=== PATIENT | female | born 1955 | race Caucasian/White ===

== ENCOUNTER 2017-04-03 17:34 | Observation (INO) | payer MEDICAID ==
[2017-04-03] MEDS ORDERED: Sodium Chloride 0.9% 1,000 ML IV ONE (17:57)
[2017-04-03 18:19] LABS: BASO # 0.1 K/uL (0.0-0.2); BASO % 0.5 % (0.0-2.0); EOS # 0.5 K/uL (0.0-0.7); EOS % 4.5 % (0.0-4.0); HEMATOCRIT 35.6 % (34.0-47.0); LYMPH # 3.6 K/uL (1.0-4.3); LYMPH % 30.6 % (20.0-40.0); MEAN CELL VOLUME 96.7 fL (81.0-99.0); MEAN CORPUSCULAR HEMOGLOBIN 30.6 pg (27.0-31.0); MEAN CORPUSCULAR HGB CONC 31.6 g/dL (33.0-37.0); MEAN PLATELET VOLUME 9.9 fL (7.2-11.7); MONO # 0.5 K/uL (0.0-0.8); MONO % 4.5 % (0.0-10.0); RED CELL DISTRIBUTION WIDTH 13.9 % (11.5-14.5); WHITE BLOOD COUNT 11.8 K/uL (4.8-10.8)
--- NOTE | 2017-04-03 18:27 | C.PDOC ---
History Of Present Illness 62 y/o female, with PMHx of HTN, diabetes, presents to ED c/o dizziness and lightheadedness that started earlier today. As per EMS, pt was at daycare center when she began to feel dizzy. Denies fever, pain, change in vision, nausea, vomiting, or any other complaints. Time Seen by Provider: 04/03/17 17:43 Chief Complaint (Nursing): Dizziness/Lightheaded History Per: Patient History/Exam Limitations: no limitations Onset/Duration Of Symptoms: Hrs Current Symptoms Are (Timing): Still Present Past Medical History Reviewed: Historical Data, Nursing Documentation, Vital Signs Vital Signs: Last Vital Signs Temp 98.9 F 04/05/17 14:00 Pulse 75 04/05/17 10:00 Resp 18 04/05/17 06:00 BP 136/76 04/05/17 06:00 Pulse Ox 95 04/05/17 06:00 - Medical History PMH: Anxiety, Asthma, Depression, Fractures (# left ankle), HTN, Hypercholesterolemia, Rheumatoid Arthritis Family History: States: Unknown Family Hx - Social History Hx Alcohol Use: No Hx Substance Use: No - Immunization History Hx Tetanus Toxoid Vaccination: No Hx Influenza Vaccination: No Review Of Systems Except As Marked, All Systems Reviewed And Found Negative. Constitutional: Negative for: Fever, Chills Eyes: Negative for: Vision Change Cardiovascular: Positive for: Light Headedness. Negative for: Chest Pain, Palpitations Respiratory: Negative for: Shortness of Breath Gastrointestinal: Negative for: Nausea, Vomiting Neurological: Positive for: Dizziness. Negative for: Weakness, Numbness, Headache Physical Exam - Physical Exam Appears: Non-toxic, No Acute Distress, Other (comfortable, on her phone) Skin: Normal Color, Warm, Dry Head: Atraumatic, Normacephalic Eye(s): bilateral: Normal Inspection Nose: Normal Oral Mucosa: Moist Neck: Normal ROM, Supple Chest: Symmetrical Cardiovascular: Rhythm Regular, No Murmur Respiratory: Normal Breath Sounds, No Rales, No Rhonchi, No Wheezing Gastrointestinal/Abdominal: Soft, No Tenderness Extremity: Normal ROM Neurological/Psych: Oriented x3, Normal Speech, Normal Cognition ED Course And Treatment - Laboratory Results Result Diagrams: 04/03/17 18:10 04/03/17 18:10 ECG: Interpreted By Me, Viewed By Me ECG Rhythm: Sinus Rhythm ECG Interpretation: No Acute Changes Interpretation Of ECG: No acute ST wave changes. Rate From EC O2 Sat by Pulse Oximetry: 97 Pulse Ox Interpretation: Normal Medical Decision Making Medical Decision Making: Blood work, UA, CXR, EKG ordered and reviewed. Patient was given IV fluids. unable to reach pmd to discuss cr. discussed with dr trent, accpetd for obs for renal insufficency, near syncope Disposition - Disposition Disposition: HOSPITALIZED Disposition Time: 08:33 Condition: STABLE - Clinical Impression Clinical Impression: Dizziness, Near syncope, Renal insufficiency - Scribe Statement The provider has reviewed the documentation as recorded by the Scribe Isidra Trent All medical record entries made by the Scribe were at my direction and personally dictated by me. I have reviewed the chart and agree that the record accurately reflects my personal performance of the history, physical exam, medical decision making, and the department course for this patient. I have also personally directed, reviewed, and agree with the discharge instructions and disposition. Decision To Admit - Pt Status Changed To: Hospital Disposition Of: Observation - . Bed Request Type: Telemetry Admitting Physician: Slim Trent Patient Diagnosis: Dizziness, Near syncope, Renal insufficiency
[2017-04-03 18:32] LABS: ALKALINE PHOSPHATASE 67 U/L (38-126); ALT/SGPT 77 U/L (9-52); AST/SGOT 63 U/L (14-36); BILIRUBIN,TOTAL 0.4 mg/dL (0.2-1.3); BLOOD UREA NITROGEN 35 mg/dL (7-17); CALCIUM 8.7 mg/dl (8.6-10.4); CARBON DIOXIDE 27 mmol/L (22-30); CHLORIDE 99 mmol/L (98-107); GFR AFRICAN-AMERICAN 26; GLUCOSE,RANDOM 89 mg/dL (65-105); POTASSIUM 3.5 mmol/L (3.6-5.2); SODIUM 140 mmol/L (132-148); TOTAL PROTEIN 8.9 g/dL (6.3-8.3)
[2017-04-03 18:34] LABS: ALB/GLOB RATIO 0.9 (1.0-2.1)
[2017-04-03] MEDS ORDERED: Sodium Chloride 0.9% 1,000 ML ONE (19:34)
--- NOTE | 2017-04-03 20:33 | CT ---
EXAM: CT Abdomen and Pelvis Without Intravenous Contrast EXAM DATE/TIME: 04/03/2017 7:06 PM CLINICAL HISTORY: 62 years old, female; Pain; Abdominal pain; Flank; Left lower quadrant (llq); Additional info: Left flank pain TECHNIQUE: Axial computed tomography images of the abdomen and pelvis without intravenous contrast. All CT scans at this facility use one or more dose reduction techniques, viz.: automated exposure control; ma/kV adjustment per patient size (including targeted exams where dose is matched to indication; i.e. head); or iterative reconstruction technique. Coronal and sagittal reformatted images were created and reviewed. COMPARISON: There are no prior studies for comparison. FINDINGS: Lower thorax: The heart is mildly enlarged. There are coronary artery calcifications. There is minimal atelectasis and scarring at the lung bases. ABDOMEN: Liver: unremarkable Gallbladder and bile ducts: Gallbladder is distended with multiple stones.There is prominence of the common duct. Pancreas: Pancreas is atrophic. Spleen: unremarkable Adrenals: Right adrenal is unremarkable. There are left adrenal nodules. Kidneys and ureters: There are bilateral nonobstructing renal stones. There is a left renal cyst. There are no ureteral stones. There is no pelvocaliectasis or ureterectasis. Stomach and bowel: Stomach is distended with ingested material. There is an air-fluid level. Rotation is normal. Proximal small bowel is mildly distended with fluid and air. There is fluid and air throughout the small bowel. Ileocecal region is unremarkable. Appendix and terminal ileum are unremarkable.There is moderate stool in the right colon. There is scattered diverticulosis. Appendix: See stomach and bowel PELVIS: Bladder: unremarkable Reproductive: Uterus and adnexal structures are unremarkable. ABDOMEN and PELVIS: Intraperitoneal space: There is no free air or free fluid. Bones/joints: Bony structures are osteopenic with degenerative change. There is a mild convex left thoracolumbar curve. There is mild compression deformity of L1. There is a bone island in the left femoral head. There is multilevel disc space narrowing. Soft tissues: There is a small fat containing umbilical hernia. Vasculature: There are calcified phleboliths. There are vascular calcifications. Lymph nodes: There is no pathologic adenopathy. IMPRESSION: Bilateral nonobstructing renal stones, no ureteral stones or hydronephrosis; no CT findings of appendicitis or diverticulitis; gallstones Additional findings as described above.
--- NOTE | 2017-04-04 07:35 | CP.PCM.CON ---
History of Present Illness - History of Present Illness History of Present Illness: CONSULT DICTATED DIABETIC DYSAUTONOMIA VS IATROGENIC FROM ANTI HTN MED DIABETIC AND COLLAGEN VASC DISEASE NEUROPATHY FACIAL ASYMMETRY AND BILAT BABINSKI CHECK BRAIN REST PER ORDER Past Patient History - Past Social History Smoking Status: Heavy Smoker > 10 Cigarettes Daily - CARDIAC Hx Hypercholesterolemia: Yes Hx Hypertension: Yes - PULMONARY Hx Asthma: Yes - NEUROLOGICAL Hx Vertigo: Yes - ENDOCRINE/METABOLIC Hx Diabetes Mellitus Type 2: Yes - MUSCULOSKELETAL/RHEUMATOLOGICAL Hx Fractures: Yes (# left ankle) Hx Rheumatoid Arthritis: Yes - PSYCHIATRIC Hx Anxiety: Yes Hx Depression: Yes Hx Substance Use: No - SURGICAL HISTORY Hx Surgeries: No - ANESTHESIA Hx Anesthesia: No Meds Allergies/Adverse Reactions: Allergies Allergy/AdvReac Type Severity Reaction Status Date / Time No Known Allergies Allergy Verified 02/02/15 14:11 - Medications Medications: Current Medications Aspirin (Aspirin) 325 mg PO DAILY [facility] Clopidogrel Bisulfate (Plavix) 75 mg PO DAILY [facility] Enoxaparin Sodium (Lovenox) 40 mg SC DAILY [facility] Meclizine HCl (Antivert) 25 mg PO TID [facility] Pantoprazole Sodium (Protonix Ec Tab) 40 mg PO DAILY [facility] Results - Vital Signs Recent Vital Signs: Last Vital Signs Temp 97.7 F 04/04/17 02:00 Pulse 52 L 04/04/17 02:00 Resp 19 04/04/17 02:00 BP 93/57 L 04/04/17 02:00 Pulse Ox 96 04/04/17 02:00 - Labs Result Diagrams: 04/03/17 18:10 04/03/17 18:10 Labs: Laboratory Results - last 24 hr 04/03/17 04/03/17 04/03/17 17:40 18:10 18:10 WBC 11.8 H RBC 3.68 L Hgb 11.3 Hct 35.6 MCV 96.7 MCH 30.6 MCHC 31.6 L RDW 13.9 Plt Count 212 MPV 9.9 Neut % (Auto) 59.9 Lymph % (Auto) 30.6 [place] % (Auto) 4.5 Eos % (Auto) 4.5 H Baso % (Auto) 0.5 Neut # 7.1 H Lymph # 3.6 [place] # 0.5 Eos # 0.5 Baso # 0.1 PT 11.7 INR 1.0 APTT 28 Sodium Potassium Chloride Carbon Dioxide Anion Gap BUN Creatinine Est GFR ( Amer) Est GFR (Non-Af Amer) POC Glucose (mg/dL) 99 Random Glucose Calcium Total Bilirubin AST ALT Alkaline Phosphatase Total Creatine Kinase CK-MB (Mass) Troponin I Total Protein Albumin Globulin Albumin/Globulin Ratio 04/03/17 04/04/17 18:10 04:16 WBC RBC Hgb Hct MCV MCH MCHC RDW Plt Count MPV Neut % (Auto) Lymph % (Auto) [place] % (Auto) Eos % (Auto) Baso % (Auto) Neut # Lymph # [place] # Eos # Baso # PT INR APTT Sodium 140 Potassium 3.5 L Chloride 99 Carbon Dioxide 27 Anion Gap 19 BUN 35 H Creatinine 2.3 H Est GFR ( Amer) 26 Est GFR (Non-Af Amer) 21 POC Glucose (mg/dL) Random Glucose 89 Calcium 8.7 Total Bilirubin 0.4 AST 63 H ALT 77 H Alkaline Phosphatase 67 Total Creatine Kinase 59 CK-MB (Mass) 1.12 Troponin I < 0.0120 < 0.0120 Total Protein 8.9 H Albumin 4.3 Globulin 4.6 H Albumin/Globulin Ratio 0.9 L
--- NOTE | 2017-04-04 07:47 | RAD ---
HISTORY: dizziness/weakness COMPARISON: No prior. FINDINGS: LUNGS: No active pulmonary disease. PLEURA: No significant pleural effusion identified, no pneumothorax apparent. CARDIOVASCULAR: Prominent cardiac silhouette. Normal pulmonary vascular pattern. OSSEOUS STRUCTURES: No significant abnormalities. VISUALIZED UPPER ABDOMEN: Normal. OTHER FINDINGS: None. IMPRESSION: Cardiomegaly. No pulmonary vascular derangement identified. No acute infiltrate bilaterally.
[2017-04-04 08:48] LABS: FREE T4 1.24 ng/dL (0.78-2.19)
[2017-04-04 09:02] LABS: THYROID STIMULATING HORMONE 0.82 mIU/L (0.46-4.68)
--- NOTE | 2017-04-04 09:51 | CON ---
ATTENDING PHYSICIAN: Clau Eli MD. LOCATION: The patient's room number, ER bed 1. REASON FOR THE CONSULTATION: Dizziness. CHIEF COMPLAINT: The patient was brought in to [facility] with a history of recurrent dizziness. From neurological point of view, I was called in to evaluate her for further management. HISTORY OF PRESENT ILLNESS: Ms. Keila Gracia is a 62-year-old right-handed depressed female, presenting with episodic dizziness for more than 6 months. She feels whenever she sits, she feels lightheadedness. When she forces to get up, she tend to fall. She has a recurrent fall on the left side only. Sometimes, the dizziness is associating with vertical double vision. No shortness of breath. Painful walking due to the arthritis. No bowel or bladder incontinence. No history of involuntary movements. No history of speech impairment. No headache at present. PAST MEDICAL HISTORY: Diabetes mellitus, hypertension, dyslipidemia, rheumatoid arthritis. PERSONAL HISTORY: Denies alcohol use; however, she smokes. MEDICATIONS AT HOME: Oxycodone, Norvasc, Ventolin, Strovite, Januvia, Simvastatin, paroxetine, oxybutynin, Starlix, Antivert, Lantus insulin and iron supplements. REVIEW OF SYSTEMS: Twelve-point systems had been reviewed. From neuro, recurrent dizziness. PHYSICAL EXAMINATION: VITAL SIGNS: Blood pressure 93/57, mean arterial pressure of 69, respiratory rate 16, temperature 97.7, pulse rate 52, regular. NECK: Supple. No carotid bruit. HEART: Sounds systolic murmur. EXTREMITIES: No edema in legs. NEUROLOGICAL: Mental status examination: She is awake, alert, oriented to person, place and time. Speech is clear. Naming, repetition, fluency, comprehension all within normal. Cranial nerve examination: Visual field intact. Pupils reactive to light. Extraocular movement seems to be intact. No focal weakness of the extraocular muscles noted. No primary gaze nystagmus. No facial sensory deficit. Significant facial asymmetry manifesting with flattening of the right nasolabial fold. Hearing seems to be intact. Mouth moist. Tongue is midline. Motor examination: Pain limited exam in the shoulder as well as elbows. No significant drift noted. Symmetric muscle strength on both upper extremities. Lower extremities, pain limited exam. Deep tendon reflexes, biceps, brachialis, triceps 3+ on either side. Both knees are absent. Both ankles are absent. Plantars are upgoing on both sides. Sensory examination: Significantly decreased bilateral distal symmetric sensory motor dysfunction. Gait is antalgic gait. WORKUP: Chest x-ray, no acute pathology is noted. Blood workup: WBC 11.8, hemoglobin 11.3, hematocrit 35.6, platelet 212. PT 11.7, INR 1.0, PTT 28. Sodium 140, potassium 3.5, chloride 99, bicarbonate 27, BUN 35, creatinine 2.3, AST 63, ALT 77, protein 8.9. CONCLUSION: Ms. Keila Gracia has been presenting with the following. 1. 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 However, this is probably secondary to her iatrogenic too much medication for her blood pressure control. 2. Facial asymmetry associating with hyperreflexia in the upper extremities and Babinski sign raised the possibility of posterior fossa dysfunction. This is probably secondary to ischemic process versus space-occupying lesion. 3. 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 Her diabetes, hypertension, cholesterol has to be controlled. 4. The patient definitely needs MRI of the brain, carotid Doppler, echocardiogram, EEG to rule out any focal pathology that could explain her problem. 5. The patient should have nerve conduction study and electromyography that can be done as outpatient to study the extend of her neuropathy. 6. The patient should be kept fall precaution. Continue antiplatelets for now with statins. 7. Abstinence from smoking had been discussed with her. Gregory Acosta MD
[2017-04-04] MEDS ORDERED: GLUCOVANCE PO SCH (10:00)
[2017-04-04] MEDS ORDERED: Enoxaparin 40 mg Syringe SC SCH ×2 (10:00)
[2017-04-04] MEDS: Enoxaparin 30 mg Syringe SC SCH (12:02)
[2017-04-04] MEDS: Pantoprazole 40 mg EC Tab PO SCH (12:03)
--- NOTE | 2017-04-04 12:05 | VASCLAB ---
PROCEDURE: HISTORY: Syncope, R55 COMPARISON: None available. TECHNIQUE: Grayscale and duplex Doppler evaluation of the cervical carotid and vertebral arteries were performed. The common carotid, carotid bifurcations and cervical Internal Carotid Artery (ICA) and proximal External Carotid Artery (ECA) were evaluated. The vertebral arteries were evaluated for gross patency and flow direction. Report prepared by ROMERO Mcknight FINDINGS: RIGHT CAROTID ARTERIES: 1. Common Carotid Artery: No significant focal plaque formation of the right common carotid artery. Maximum Peak Systolic velocity: 94 cm/sec: End-diastolic velocity 16 cm/sec. 2. Carotid Bifurcation: plaque formation. Maximum Peak Systolic velocity: 46 cm/sec: End-diastolic velocity 13 cm/sec. 3. Internal Carotid Artery: Plaque description: 3.1. Proximal Segment: Peak systolic velocity 57 cm/sec: End-diastolic velocity 22 cm/sec - % stenosis 0-15% 3.2. Middle Segment: Peak systolic velocity 83 cm/sec: End-diastolic velocity 29 cm/sec - % stenosis 0-15% 3.3. Distal Segment: Peak systolic velocity 85 cm/sec: End-diastolic velocity 25 cm/sec - % stenosis 0-15% 4. External Carotid Artery: No significant focal plaque formation. Peak systolic velocity 72 cm/sec 5. ICA/CCA Ratio: 1.4 LEFT CAROTID ARTERIES: 1. Common Carotid Artery: No significant focal plaque formation of the left common carotid artery. Maximum Peak Systolic velocity: 87 cm/sec: End-diastolic velocity 17 cm/sec. 2. Carotid Bifurcation: plaque formation. Maximum Peak Systolic velocity: 57 cm/sec: End-diastolic velocity 16 cm/sec. 3. Internal Carotid Artery: Plaque description: 3.1. Proximal Segment: Peak systolic velocity 65 cm/sec: End-diastolic velocity 25 cm/sec - % stenosis 0-15% 3.2. Middle Segment: Peak systolic velocity 69 cm/sec: End-diastolic velocity 26 cm/sec - % stenosis 0-15% 3.3. Distal Segment: Peak systolic velocity 91 cm/sec: End-diastolic velocity 28 cm/sec - % stenosis 0-15% 4. External Carotid Artery: No significant focal plaque formation. Peak systolic velocity 94 cm/sec 5. ICA/CCA Ratio: 1.4 VERTEBRAL ARTERIES: 1. Right Vertebral Artery: The right vertebral artery flow direction is antegrade. 2. Left Vertebral Artery: The left vertebral artery flow direction is antegrade. OTHER FINDINGS: 1. Right Brachial Blood pressure: 100 mmHg. 2. Left Brachial Blood pressure: 100 mmHg. IMPRESSION: RIGHT: Duplex scan does not suggest hemodynamically significant stenosis of the right extracranial carotid arteries. LEFT: Duplex scan does not suggest hemodynamically significant stenosis of the left extracranial carotid arteries.
--- NOTE | 2017-04-04 13:23 | MRI ---
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 TECHNIQUE: Multiplanar, multisequence MR images of the brain were obtained without intravenous contrast enhancement. FINDINGS: HEMORRHAGE: None DWI: No evidence of an acute or early subacute infarction. BRAIN PARENCHYMA: There are moderate chronic microangiopathic changes. There is no mass, mass effect or abnormal extra-axial fluid collection. The midline sagittal structures are normal. VENTRICLES: There is mild age-related global parenchymal volume loss and proportionate enlargement of the ventricles and cortical sulci. There is a cavum vergae. CRANIUM: There is normal bone marrow signal pattern. ORBITS: Grossly unremarkable. PARANASAL SINUSES/MASTOIDS: Predominantly clear. VASCULAR SYSTEM: There are normal signal voids in the larger intracranial arteries. OTHER FINDINGS: None. IMPRESSION: No acute intracranial abnormality. Specifically, no evidence of acute infarction. Moderate chronic microangiopathic changes and mild age-related global parenchymal volume loss.
--- NOTE | 2017-04-04 19:07 | CP.PCM.HP ---
History of Present Illness - History of Present Illness History of Present Illness: 62-year-old female with PMHanxiety, asthma DM,, depression, HTN, hypercholesterolemia and rheumatoid arthritis presents to the ER for evaluation of lightheadedness. C/ dizziness for the last few hours. Patient was at her daycare when she felt dizzy. No C/Oloss of consciousness, fever, chills, pain, blurring of vision, tinnitus, ringing in the years, vomiting. Present on Admission - Present on Admission Any Indicators Present on Admission: No Past Patient History - Past Medical History & Family History Past Medical History?: Yes - Past Social History Smoking Status: Heavy Smoker > 10 Cigarettes Daily - CARDIAC Hx Hypercholesterolemia: Yes Hx Hypertension: Yes - PULMONARY Hx Asthma: Yes - NEUROLOGICAL Hx Dizziness: Yes Hx Vertigo: Yes - ENDOCRINE/METABOLIC Hx Diabetes Mellitus Type 2: Yes - MUSCULOSKELETAL/RHEUMATOLOGICAL Hx Falls: Yes ("Frequent vertigo" per patient last fall 07/2016) Hx Fractures: Yes (# left ankle) Hx Rheumatoid Arthritis: Yes - PSYCHIATRIC Hx Anxiety: Yes Hx Depression: Yes Hx Substance Use: No - SURGICAL HISTORY Hx Surgeries: No - ANESTHESIA Hx Anesthesia: No Meds Home Medications: Home Medication List Medication Instructions Recorded Confirmed Type Diclofenac Sodium [Voltaren] 75 mg PO BID #28 ect 04/05/17 Rx Escitalopram [Lexapro] 5 mg PO DAILY #30 tab 04/05/17 Rx Meclizine [Meclizine*] 25 mg PO TID #90 tab 04/05/17 Rx clonazePAM [Klonopin] 0.5 mg PO BID #30 tab 04/05/17 Rx Allergies/Adverse Reactions: Allergies Allergy/AdvReac Type Severity Reaction Status Date / Time No Known Allergies Allergy Verified 02/02/15 14:11 Physical Exam - Constitutional Appears: Well - Head Exam Head Exam: ATRAUMATIC, NORMAL INSPECTION, NORMOCEPHALIC - Eye Exam Eye Exam: EOMI, Normal appearance, PERRL Pupil Exam: NORMAL ACCOMODATION, PERRL - ENT Exam ENT Exam: Mucous Membranes Moist, Normal Exam - Neck Exam Neck exam: Positive for: Normal Inspection - Respiratory Exam Respiratory Exam: Decreased Breath Sounds - Cardiovascular Exam Cardiovascular Exam: REGULAR RHYTHM, +S1, +S2 - GI/Abdominal Exam GI & Abdominal Exam: Diminished Bowel Sounds, Soft - Rectal Exam Rectal Exam: Deferred Results - Vital Signs Recent Vital Signs: Last Vital Signs Temp 98.4 F 04/04/17 14:00 Pulse 61 04/04/17 09:35 Resp 17 04/04/17 09:35 BP 127/74 04/04/17 07:57 Pulse Ox 96 04/04/17 09:35 - Labs Result Diagrams: 04/03/17 18:10 04/03/17 18:10 Labs: Laboratory Results - last 24 hr 04/04/17 04/04/17 04/04/17 04:16 07:46 07:46 POC Glucose (mg/dL) Hemoglobin A1c 6.7 H Total Creatine Kinase 59 CK-MB (Mass) 1.12 Troponin I < 0.0120 Vitamin B12 617 Free T4 TSH 3rd Generation 04/04/17 04/04/17 04/04/17 07:58 12:25 17:28 POC Glucose (mg/dL) 205 H Hemoglobin A1c Total Creatine Kinase 64 CK-MB (Mass) 0.79 Troponin I < 0.0120 Vitamin B12 Free T4 1.24 TSH 3rd Generation 0.82
[2017-04-04] MEDS ORDERED: Potassium Chloride 20 mEq ER Tab PO STA (19:26)
[2017-04-04] MEDS: (Novolin R) Insulin Human Regular 100 units/ml vial SC SCH (21:54)
--- NOTE | 2017-04-04 23:02 | CP.PCM.CON ---
History of Present Illness - History of Present Illness History of Present Illness: Patient seen and evaluated Full consult to follow Past Patient History - Past Medical History & Family History Past Medical History?: Yes - Past Social History Smoking Status: Heavy Smoker > 10 Cigarettes Daily - CARDIAC Hx Hypercholesterolemia: Yes Hx Hypertension: Yes - PULMONARY Hx Asthma: Yes - NEUROLOGICAL Hx Dizziness: Yes Hx Vertigo: Yes - ENDOCRINE/METABOLIC Hx Diabetes Mellitus Type 2: Yes - MUSCULOSKELETAL/RHEUMATOLOGICAL Hx Falls: Yes ("Frequent vertigo" per patient last fall 07/2016) Hx Fractures: Yes (# left ankle) Hx Rheumatoid Arthritis: Yes - PSYCHIATRIC Hx Anxiety: Yes Hx Depression: Yes Hx Substance Use: No - SURGICAL HISTORY Hx Surgeries: No - ANESTHESIA Hx Anesthesia: No Meds Allergies/Adverse Reactions: Allergies Allergy/AdvReac Type Severity Reaction Status Date / Time No Known Allergies Allergy Verified 02/02/15 14:11 - Medications Medications: Current Medications Amlodipine Besylate (Norvasc) 5 mg PO DAILY [facility] Last Admin: 04/04/17 12:03 Dose: Not Given Aspirin (Aspirin) 325 mg PO DAILY [facility] Last Admin: 04/04/17 12:02 Dose: Not Given Clopidogrel Bisulfate (Plavix) 75 mg PO DAILY [facility] Last Admin: 04/04/17 12:03 Dose: Not Given Enoxaparin Sodium (Lovenox) 30 mg SC DAILY [facility] Last Admin: 04/04/17 12:02 Dose: Not Given Ferrous Sulfate (Feosol) 325 mg PO BID [facility] Last Admin: 04/04/17 17:22 Dose: 325 mg Glyburide (Micronase) 5 mg PO BID [facility] Last Admin: 04/04/17 17:23 Dose: 5 mg Insulin Human Regular (Novolin R) 0 unit SC [facility] PRN Reason: Protocol Last Admin: 04/04/17 21:54 Dose: Not Given Meclizine HCl (Antivert) 25 mg PO TID [facility] Last Admin: 04/04/17 17:23 Dose: 25 mg [facility] Last Admin: 04/04/17 16:48 Dose: 500 mg Oxybutynin Chloride (Ditropan Xl) 5 mg PO DAILY [facility] Pantoprazole Sodium (Protonix Ec Tab) 40 mg PO DAILY [facility] Last Admin: 04/04/17 12:03 Dose: Not Given Sitagliptin Phosphate (Januvia) 100 mg PO DAILY [facility] Results - Vital Signs Recent Vital Signs: Last Vital Signs Temp 98.8 F 04/04/17 21:56 Pulse 63 04/04/17 18:00 Resp 19 04/04/17 18:00 BP 112/43 L 04/04/17 18:00 Pulse Ox 99 04/04/17 18:00 - Labs Result Diagrams: 04/03/17 18:10 04/03/17 18:10 Labs: Laboratory Results - last 24 hr 04/04/17 04/04/17 04/04/17 04:16 07:46 07:46 POC Glucose (mg/dL) Hemoglobin A1c 6.7 H Total Creatine Kinase 59 CK-MB (Mass) 1.12 Troponin I < 0.0120 Vitamin B12 617 Free T4 TSH 3rd Generation 04/04/17 04/04/17 04/04/17 07:58 12:25 17:28 POC Glucose (mg/dL) 205 H Hemoglobin A1c Total Creatine Kinase 64 CK-MB (Mass) 0.79 Troponin I < 0.0120 Vitamin B12 Free T4 1.24 TSH 3rd Generation 0.82
[2017-04-05 06:22] VITALS: BP 136/76; RESP 18
[2017-04-05] MEDS: (Novolin R) Insulin Human Regular 100 units/ml vial SC SCH ×2 (09:19→12:18)
[2017-04-05] MEDS: Pantoprazole 40 mg EC Tab PO SCH (10:31)
[2017-04-05] MEDS: Enoxaparin 30 mg Syringe SC SCH (10:32)
--- NOTE | 2017-04-05 10:38 | CARD ---
APPROVED REPORT EKG Measurement Heart [id number] <Conclusion> Normal sinus rhythm Prolonged QT Abnormal ECG
[2017-04-05] MEDS ORDERED: HYDROmorphone 1 mg/ml ISec IVP PRN (10:48)
[2017-04-05 12:53] VITALS: PULSE 75
[2017-04-05] MEDS ORDERED: HYDROmorphone 1 mg/ml ISec IVP SCH (14:00)
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
[2017-04-05 15:28] VITALS: TEMP 98.9
--- NOTE | 2017-04-05 15:47 | CP.PCM.PN ---
Subjective - Date & Time of Evaluation Date of Evaluation: 04/05/17 Time of Evaluation: 15:46 - Subjective Subjective: PT SEEN BY DR. Jan WEBB AND CLEARED FOR D/C. ALSO CLEARED BY DR. VILLA. SEEN BY PSYCH AND RECS MADE. NEW RX GIVEN/SENT TO PT'S PHARMACY. SHE IS TO F/U WITH DR. WEBB IN THE OFFICE ON SUNDAY. PT VERBALIZES UNDERSTANDING OF ALL MEDS, D /C AND F/U. NO FURTHER ORDERS. FAMILY AT BEDSIDE TO TAKE HER HOME. Objective - Vital Signs/Intake and Output Vital Signs (last 24 hours): Temp Pulse Resp BP Pulse Ox 98.9 F 75 18 136/76 95 04/05/17 14:00 04/05/17 10:00 04/05/17 06:00 04/05/17 06:00 04/05/17 06:00 Intake and Output: 04/05/17 04/05/17 06:59 18:59 Intake Total 0 360 Output Total 600 Balance 0 -240 - Medications Medications: Current Medications Amlodipine Besylate (Norvasc) 5 mg PO DAILY [facility] Last Admin: 04/05/17 10:31 Dose: 5 mg Aspirin (Aspirin) 325 mg PO DAILY [facility] Last Admin: 04/05/17 10:31 Dose: 325 mg Clonazepam (Klonopin) 0.5 mg PO BID [facility] Clopidogrel Bisulfate (Plavix) 75 mg PO DAILY [facility] Last Admin: 04/05/17 10:33 Dose: 75 mg Enoxaparin Sodium (Lovenox) 30 mg SC DAILY [facility] Last Admin: 04/05/17 10:32 Dose: Not Given Escitalopram Oxalate (Lexapro) 5 mg PO DAILY [facility] Last Admin: 04/05/17 14:18 Dose: 5 mg Ferrous Sulfate (Feosol) 325 mg PO BID [facility] Last Admin: 04/05/17 10:32 Dose: 325 mg Glyburide (Micronase) 5 mg PO BID [facility] Last Admin: 04/05/17 10:47 Dose: 5 mg Hydromorphone HCl (Dilaudid) 1 mg IVP Q8H PRN PRN Reason: Pain, severe (8-10) Last Admin: 04/05/17 11:08 Dose: 1 mg Insulin Human Regular (Novolin R) 0 unit SC [facility] PRN Reason: Protocol Last Admin: 04/05/17 12:18 Dose: Not Given Meclizine HCl (Antivert) 25 mg PO TID [facility] Last Admin: 04/05/17 14:18 Dose: 25 mg Metformin HCl (Glucophage) 500 mg PO BIDCC [facility] Last Admin: 04/05/17 09:00 Dose: 500 mg Oxybutynin Chloride (Ditropan Xl) 5 mg PO DAILY [facility] Last Admin: 04/05/17 10:47 Dose: 5 mg Pantoprazole Sodium (Protonix Ec Tab) 40 mg PO DAILY [facility] Last Admin: 04/05/17 10:31 Dose: 40 mg Sitagliptin Phosphate (Januvia) 100 mg PO DAILY [facility] Last Admin: 04/05/17 10:31 Dose: 100 mg - Labs Labs: 04/03/17 18:10 04/03/17 18:10 PT 11.7 SECONDS (9.7-12.2) 04/03/17 18:10 INR 1.0 04/03/17 18:10 APTT 28 SECONDS (21-34) 04/03/17 18:10
--- NOTE | 2017-04-05 20:36 | CARD ---
APPROVED REPORT EXAM: Two-dimensional and M-mode echocardiogram with Doppler and color Doppler. Other Information Quality : GoodRhythm : INDICATION Dizziness and Vertigo Syncope RISK FACTORS Hypertension Hyperlipidemia Diabetes 2D DIMENSIONS IVSd1.2 (0.7-1.1cm)LVDd3.7 (3.9-5.9cm) PWd1.1 (0.7-1.1cm)LVDs2.1 (2.5-4.0cm) FS (%) 42.8 %LVEF (%)74.7 (>50%) M-Mode DIMENSIONS RVDd2.87 (2.1-3.2cm)Left Atrium (MM)3.61 (2.5-4.0cm) IVSd1.16 (0.7-1.1cm)Aortic Root2.92 (2.2-3.7cm) LVDd3.66 (4.0-5.6cm)Aortic Cusp Exc.2.03 (1.5-2.0cm) PWd1.29 (0.7-1.1cm)FS (%) 51 % LVDs1.79 (2.0-3.8cm)LVEF (%)83 (>50%) Aortic Valve AoV Peak Hgjtwgyd686.4cm/Jamari Peak GR.15mmHg Mitral Valve MV E Njvxzbac88.6cm/sMV A Lrvvetmp49.3cm/sE/A ratio1.0 TDI E/Lateral E'0.0E/Medial E'0.0 Tricuspid Valve TR Peak [id number]/sTR Peak Gr.[id number] LEFT VENTRICLE The left ventricle is normal size. There is borderline increasedl left ventricular wall thickness. The left ventricular function is normal. The left ventricular ejection fraction is within the normal range. About 60%. No regional wall motion abnormalities noted. The left ventricular diastolic function is indetermiamte. No left ventricle thrombus noted on this study. There is no ventricular septal defect visualized. There is no left ventricular aneurysm. There is no mass noted in the left ventricle. RIGHT VENTRICLE The right ventricle is normal size. There is normal right ventricular wall thickness. The right ventricular systolic function is normal. ATRIA The left atrium size is normal. The right atrium size is normal. The interatrial septum is intact with no evidence for an atrial septal defect. AORTIC VALVE The aortic valve is normal in structure and function. No aortic regurgitation is present. There is no aortic valvular stenosis. There is no aortic valvular vegetation. MITRAL VALVE The mitral valve is normal in structure and function. There is no evidence of mitral valve prolapse. There is no mitral valve stenosis. There is no mitral valve regurgitation noted. TRICUSPID VALVE The tricuspid valve is normal in structure and function. There is no tricuspid valve regurgitation noted. There is no tricuspid valve prolapse or vegetation. There is no tricuspid valve stenosis. PULMONIC VALVE The pulmonary valve is normal in structure and function. There is no pulmonic valvular regurgitation. There is no pulmonic valvular stenosis. GREAT VESSELS The aortic root is normal in size. The ascending aorta is normal in size. The pulmonary artery is normal. The IVC is normal in size and collapses >50% with inspiration. PERICARDIAL EFFUSION The pericardium appears normal. There is no pleural effusion. <Conclusion> Normal LV systolic fuinction. There is borderline increasedl left ventricular wall thickness. Normal Doppler.
[2017-04-06 08:34] VITALS: O2SAT 97
--- NOTE | 2017-04-06 15:01 | EEG ---
DATE: 04/04/2017 This is a 16-channel electroencephalogram of an awake and drowsy adult. During the study, photic stimulation was performed. Hyperventilation was not performed. The resting electroencephalogram is a well organized from 9 to 11 Hz, 40 to 50 microvolt alpha activity seen at parietal and occipital leads. Anteriorly, fast activity superimposed with 2 to 3 Hz delta activities seen. The photic stimulation did not evoke driving response noted at 2 to 20 Hz. IMPRESSION: This is a normal electroencephalogram of awake and drowsy adult. During the study, neither electroencephalographic paroxysmal activities nor focal slowing noted. Gregory Acosta MD
== END 2017-04-05 16:35 | disposition home or self-care (01) ==
LOC: C.ER 17:34 → C.9E 21:31 → C.9I 04-04 07:19
PROVIDERS: ADMIT Internal Medicine Nephrology; ATTEND Internal Medicine Nephrology
DX: E13.69 Other specified diabetes mellitus with other specified complication (principal); E11.40 Type 2 diabetes mellitus with diabetic neuropathy, unspecified; I95.1 Orthostatic hypotension; I10 Essential (primary) hypertension; J45.909 Unspecified asthma, uncomplicated; M06.9 Rheumatoid arthritis, unspecified; N28.9 Disorder of kidney and ureter, unspecified; F17.210 Nicotine dependence, cigarettes, uncomplicated
CPT/HCPCS: 70551; 71010; 74176; 80053; 82607; 82948; 83036; 84439; 84443; 84484; 85025; 85610; 85730; 86334; 87081; 93005; 93306; 93880; 95812; 96360; 99285; G0378; J1170; J7040